=== PATIENT | female | born 1955 | race Caucasian/White ===

== ENCOUNTER 2016-11-03 14:28 | Emergency (ER) | payer MEDICARE, MEDICAID ==
[~2016-11-03] VITALS: Ht 157.5 cm; Wt 72.0 kg
[~2016-11-03 14:28] MED LIST: ASPI-558 PO; ATEN-39 PO; BACL-1 PO; TOPI25TA84 PO; [UNRECOGNIZED DRUG - CODE] PO
--- OUTSIDE RECORDS SUMMARY | 2016-11-03 14:33 | XMS REPORT ---
Author Author Shannen Rangel [facility] eClinicalWorks Address Unknown Phone Unavailable Care Team Providers Care Plumbing Contractor Name Role Phone Shannen Rangel CP Unavailable Allergies, Adverse Reactions, Alerts Substance Reaction Event Type Carbamazepine Info Not Available Drug Allergy Problems Problem Type Condition Code Onset Dates Condition Status Assessment Chest pain R07.9 Active Problem Trigeminal neuralgia 350.1 Active Problem Chronic hepatitis C without mention of hepatic coma 070.54 Active Assessment Trigeminal neuralgia G50.0 Active Assessment History of [place] (myocardial infarction) I25.2 Active Problem 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 Problem CVD (cerebrovascular disease) 437.9 Active Problem History of [place] (myocardial infarction) I25.2 Active Problem CAD (coronary artery disease) 414.00 Active Problem Poor vision 369.9 Active Problem Hypertension 401.9 Active Problem Migraine 346.90 Active Medications Medication Code System Code Instructions Start Date End Date Status Dosage Aspirin [facility] [address]-26 325 MG Orally Once a day Mar 04, 2013 take 1 tablet (81 mg) by oral route once daily Multivitamin [facility] [address] Orally once a day 1 tablet [place] [facility] [address]-76 10-325 MG Orally 5 times daily Jun 11, 2015 1 tablet as needed Procedures Procedure Coding System Code Date OFFICE VISIT EST PATIENT LEVEL 4 CPT-4 65979 May 12, 2015 [facility] VISIT ESTABLISHED PATIENT CPT-4 G0467 May 12, 2015 ELECTROCARDIOGRAM REPORT CPT-4 80194 May 12, 2015 CREATINE, MB FRACTION.[facility] CPT-4 61653 May 12, 2015 ASSAY OF TROPONIN, QUANT.[facility] CPT-4 82343 May 12, 2015 ASSAY THYROID STIM HORMONE.[facility] CPT-4 92839 May 12, 2015 ASSAY OF CK (CPK).[facility] CPT-4 66901 May 12, 2015 ELECTROCARDIOGRAM, TRACING CPT-4 90289 May 12, 2015 X-Ray Chest CPT-4 28386 May 12, 2015 Comprehen Metabolic Panel.[facility] CPT-4 64287 May 12, 2015 X-Ray Chest CPT-4 67131 May 12, 2015 ROUTINE VENIPUNCTURE CPT-4 92590 May 12, 2015 COMPLETE CBC, AUTOMATED.AMS CPT-4 32518 May 12, 2015 Vital Signs Date/Time: May 12, 2015 BMI 28.24 Index Weight 154.4 lbs Height 62 in Blood Pressure Diastolic 74 mm Hg Blood Pressure Systolic 128 mm Hg Cardiac Monitoring Heart Rate 60 /min Temperature 97.7 F Respiratory Rate 18 /min Results No Known Results Summary Purpose eClinicalWorks Submission
--- OUTSIDE RECORDS SUMMARY | 2016-11-03 14:33 | XMS REPORT ---
Author Author Shannen Rangel Organization eClinicalWorks Address Unknown Phone Unavailable Care Team Providers Care Distribution Coordinator Name Role Phone Shannen Rangel CP Unavailable Allergies, Adverse Reactions, Alerts Substance Reaction Event Type Carbamazepine 200 Mg Tablet hallucinations Non Drug Allergy Problems Problem Type Condition ICD-9 Code Onset Dates Condition Status Assessment Trigeminal neuralgia 350.1 Active Problem Chronic hepatitis C without mention of hepatic coma 070.54 Active Assessment Foot pain, left 729.5 Active Problem CVD (cerebrovascular disease) 437.9 Active Problem Hypertension 401.9 Active Problem 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 Problem Poor vision 369.9 Active Problem Trigeminal neuralgia 350.1 Active Problem Migraine 346.90 Active Problem CAD (coronary artery disease) 414.00 Active Medications Medication Code System Code Instructions Start Date End Date Status Dosage Amitriptyline HCl [facility] [address]-77 25 MG Orally Once a day 1 tablet Aspirin [facility] [address]-83 325 MG Orally Once a day Mar 04, 2013 take 1 tablet (81 mg) by oral route once daily Hydrocodone-Acetaminophen [facility] [address]-91 10-325 MG Orally every 4 -6 hours October 10, 2014 1 tablet Multivitamin [facility] [address] Orally once a day 1 tablet Procedures Procedure Coding System Code Date OFFICE VISIT EST PATIENT LEVEL 3 CPT-4 02340 September 10, 2014 Vital Signs Date/Time: September 10, 2014 BMI 29.08 Index Weight 159 lbs Height 62 in Blood Pressure Diastolic 80 mm Hg Blood Pressure Systolic 120 mm Hg Cardiac Monitoring Heart Rate 60 /min Temperature 97.7 F Respiratory Rate 18 /min Results No Known Results Summary Purpose eClinicalWorks Submission
--- OUTSIDE RECORDS SUMMARY | 2016-11-03 14:33 | XMS REPORT ---
Author Author Shannen Rangel Organization eClinicalWorks Address Unknown Phone Unavailable Care Team Providers Care Beater Out Name Role Phone Shannen Rangel CP Unavailable Allergies No Known Allergies Problems Problem Type Condition Code Onset Dates Condition Status Problem HTN (hypertension) I10 Active Problem CAD (coronary artery disease) I25.10 Active Problem Odontogenic cyst K09.0 Active Problem Chronic hepatitis C B18.2 Active Problem Trigeminal neuralgia G50.0 Active Problem CVD (cerebrovascular disease) I67.9 Active Problem Migraine G43.909 Active Medications Medication Code System Code Instructions Start Date End Date Status Dosage [facility] [address]-19 90-400 MG Orally Once a day Mar 03, 2016May 1 tablet Results No Known Results Summary Purpose eClinicalWorks Submission
--- OUTSIDE RECORDS SUMMARY | 2016-11-03 14:33 | XMS REPORT ---
Author Shannen Martínez Organization eClinicalWorks Address Unknown Phone Unavailable Care Team Providers Care Stock Unloader Name Role Phone Shannen Rangel CP Unavailable Allergies No Known Allergies Problems Problem Type Condition Code Onset Dates Condition Status Assessment Encounter for screening mammogram for malignant neoplasm of breast Z12.31 Active Problem HTN (hypertension) I10 Active Problem CAD (coronary artery disease) I25.10 Active Problem Odontogenic cyst K09.0 Active Problem Chronic hepatitis C B18.2 Active Problem Trigeminal neuralgia G50.0 Active Problem CVD (cerebrovascular disease) I67.9 Active Problem Migraine G43.909 Active Medications Medication Code System Code Instructions Start Date End Date Status Dosage Aspirin [facility] [address]-13 325 MG Orally Once a day Mar 04, 2013 take 1 tablet (81 mg) by oral route once daily Harvoni [facility] [address]-82 90-400 MG Orally Once a day Mar 03, 2016May 1 tablet Multivitamin [facility] [address] Orally once a day 1 tablet Procedures Procedure Coding System Code Date Screening Mammography Digital Bilateral CPT-4 G0202 Mar 17, 2016 Comp Screen Mammogram Add CPT-4 82482 Mar 17, 2016 Results No Known Results Summary Purpose eClinicalWorks Submission
--- OUTSIDE RECORDS SUMMARY | 2016-11-03 14:33 | XMS REPORT ---
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
--- OUTSIDE RECORDS SUMMARY | 2016-11-03 14:33 | XMS REPORT ---
Author Author Shannen Rangel [facility] Address [address] [place], [place] [address] Care Team Providers Care Any Commodity Buyer Name Role Phone Shannen Rangel Unavailable [phone] PROBLEMS Type Condition ICD9-CM Code [id number] Code Onset Dates Condition Status SNOMED Code Problem Trigeminal neuralgia G50.0 Active 77150856 Problem Odontogenic cyst K09.0 Active 085206133 Problem HTN (hypertension) I10 Active 34836264 Problem Migraine G43.909 Active 39527998 Problem Chronic hepatitis C B18.2 Active 283670984 Problem CAD (coronary artery disease) I25.10 Active 55075489 Problem CVD (cerebrovascular disease) I67.9 Active 93674109 ALLERGIES Unknown Allergies SOCIAL HISTORY No smoking Hx information available PLAN OF CARE VITAL SIGNS MEDICATIONS Unknown Medications RESULTS No Results PROCEDURES No Known procedures IMMUNIZATIONS No Known Immunizations
--- OUTSIDE RECORDS SUMMARY | 2016-11-03 14:33 | XMS REPORT ---
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 [address] Orally once a day 1 tablet Aspirin [facility] [address]-62 325 MG Orally Once a day Mar 04, 2013 take 1 tablet (81 mg) by oral route once daily Mouthcard [facility] [address]-33 10-325 MG Orally 5 times per day Mar 13, 2015 1 tablet as needed Procedures Procedure Coding System Code Date OFFICE VISIT EST PATIENT LEVEL 3 CPT-4 32279 Feb 11, 2015 METHYLPREDNISOLONE 80 MG INJ CPT-4 J1040 Feb 11, 2015 [facility] VISIT ESTABLISHED PATIENT CPT-4 G0467 Feb 11, 2015 THERPROPHDIAG INJ, SCIM CPT-4 96951 Feb 11, 2015 Vital Signs Date/Time: Feb 11, 2015 BMI 28.24 Index Weight 154.4 lbs Height 62 in Blood Pressure Diastolic *84 mm Hg Blood Pressure Systolic 122 mm Hg Cardiac Monitoring Heart Rate 64 /min Temperature 97.9 F Respiratory Rate 20 /min Results No Known Results Summary Purpose eClinicalWorks Submission
--- OUTSIDE RECORDS SUMMARY | 2016-11-03 14:33 | XMS REPORT ---
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
--- OUTSIDE RECORDS SUMMARY | 2016-11-03 14:33 | XMS REPORT ---
Author Author Tara Self [facility] eClinicalWorks Address Unknown Phone Unavailable Care Team Providers Care Upset Operator Name Role Phone Tara Self Unavailable Allergies No Known Allergies Problems Problem Type Condition Code Onset Dates Condition Status Assessment Screening for substance abuse Z13.89 Active Problem Chronic hepatitis C B18.2 Active Problem Trigeminal neuralgia G50.0 Active Assessment High risk medication use Z79.899 Active Problem High risk medication use Z79.899 Active Problem Odontogenic cyst K09.0 Active Problem Screening for substance abuse Z13.89 Active Problem CVD (cerebrovascular disease) I67.9 Active Problem Migraine G43.909 Active Problem HTN (hypertension) I10 Active Problem CAD (coronary artery disease) I25.10 Active Medications Medication Code System Code Instructions Start Date End Date Status Dosage Multivitamin [facility] [address] Orally once a day 1 tablet Cyclobenzaprine HCl [facility] [address]-53 10 MG Orally once a day to relax muscles August 18, 2015 Feb 14, 2016 1 tablet Aspirin [facility] [address]-17 325 MG Orally Once a day Mar 04, 2013 take 1 tablet (81 mg) by oral route once daily Results No Known Results Summary Purpose eClinicalWorks Submission
--- OUTSIDE RECORDS SUMMARY | 2016-11-03 14:33 | XMS REPORT ---
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
--- OUTSIDE RECORDS SUMMARY | 2016-11-03 14:33 | XMS REPORT | Continuity of Care Document ---
Author Author [facility] Organization [facility] Address Unknown Phone Unavailable Allergies Active Description Code Type Severity Reaction Onset Reported/Identified Relationship to Patient Clinical Status Yes nicotine Drug Allergy Unknown N/A 07/13/2009 Yes No Known Drug Intolerances Drug Allergy Unknown N/A 05/15/2011 Yes nicotine Drug Allergy Unknown UNKNOWN 10/24/2013 Yes No Known Drug Intolerances Drug Allergy Unknown NONE 10/24/2013 Medications Problems Procedures Results Test Result Range CHEM/HEM PROFILE-BEDSIDE - 10/24/13 00:52 POTASSIUM 3.9 mmol/L 3.5-5.3 METHOD Bedside ANION GAP 15 mmol/L 10-20 METHOD Bedside GLUCOSE 90 mg/dL 70-99 BLOOD UREA NITROGEN 11 mg/dL 7-20 CREATININE 0.8 mg/dL 0.6-1.0 HEMOGLOBIN 15.0 gm/dL 12.0-16.0 HEMATOCRIT 44.0 % 37.0-47.0 SODIUM 142 mmol/L 135-148 CHLORIDE 103 mmol/L 98-110 CARBON DIOXIDE 29 mmol/L 21-32 CALCIUM IONIZED 4.7 mg/dL 4.5-5.3 TROPONIN I BEDSIDE - 10/24/13 00:53 METHOD Bedside TROPONIN I < 0.04 ng/mL < 0.11 CBC W/DIFF - 10/24/13 01:35 EOSINOPHIL # 0.2 k/cumm 0.1-0.5 EOSINOPHIL % 2 % 2-4 GRANULOCYTE # 2.4 k/cumm 2.0-9.0 GRANULOCYTE % 39 % 50-75 LYMPHOCYTE # 2.9 k/cumm 1.0-4.0 LYMPHOCYTE % 47 % 20-30 MEAN CELL HGB 30.8 pg 27.0-33.0 MEAN CELL HGB CONCENTRATION 33.6 g/dL 32.0-37.0 MEAN CELL VOLUME 91.4 fl 80.0-100.0 MONOCYTE # 0.7 k/cumm 0.1-1.0 MONOCYTE % 12 % 4-6 RED BLOOD CELL 4.65 m/cumm 4.00-6.00 RED CELL DISTRIBUTION WIDTH 13.3 % 11.0- 15.6 WHITE BLOOD CELL 6.2 k/cumm 5.0-10.0 HEMOGLOBIN 14.3 gm/dL 12.0-16.0 HEMATOCRIT 42.5 % 37.0-47.0 PLATELET COUNT 252 k/cumm 150-400 HEPATIC FUNCTION PANEL - 10/24/13 01:35 BILI UNCONJUGATED 0.6 mg/dL 0.0-0.7 AST/SGOT 28 Units/L 10-37 ALT/SGPT 40 Units/L < 66 TOTAL PROTEIN 7.7 gm/dL 6.4-8.2 ALBUMIN 3.9 gm/dL 3.4-5.0 BILI TOTAL 0.7 mg/dL 0.0-1.0 ALKALINE PHOSPHATASE TOTAL 82 IU/L 45- 117 BILI CONJUGATED 0.1 mg/dL 0.0-0.3 LIPASE - 10/24/13 01:35 LIPASE 184 Units/L 73-393 URINALYSIS, ROUTINE - 10/24/13 01:50 UA LEUKOCYTE ESTERASE DIPSTICK 1+ NEGATIVE UA NITRITE DIPSTICK NEGATIVE NEGATIVE UA PROTEIN DIPSTICK NEGATIVE NEGATIVE UA GLUCOSE DIPSTICK NEGATIVE NEGATIVE UA KETONE DIPSTICK NEGATIVE NEGATIVE UA UROBILINOGEN DIPSTICK NORMAL NORMAL UA BILIRUBIN DIPSTICK NEGATIVE NEGATIVE UA BLOOD DIPSTICK NEGATIVE NEGATIVE UA COMMENT UA SPECIFIC GRAVITY 1.015 1.015-1.025 UR PH 7.0 5.0-7.0 UR TEST - 10/24/13 01:50 UR TEST NEGATIVE NEGATIVE UA MICROSCOPIC - 10/24/13 01:50 UA BACTERIA 2+ NEGATIVE UA EPITHELIAL CELLS 2+ epi/hpf 0 - 1+ UA RBC 0-3 rbc/hpf 0 - 3 UA VOLUME FOR EXAM 12.0 mL (12mL STD) UA WBC 2-5 wbc/hpf 0 - 5 TROPONIN I BEDSIDE - 10/24/13 04:33 METHOD Bedside TROPONIN I < 0.04 ng/mL < 0.11 Encounters ACCT No. Visit Date/Time Discharge Status Pt. Type Provider Facility Loc./Unit Complaint [id number] 10/24/2013 00:36:00 2013 06:00:00 DIS Emergency Lucio FRANCO, [facility] W.EDS
--- OUTSIDE RECORDS SUMMARY | 2016-11-03 14:33 | XMS REPORT ---
Author Author Shannen Rangel [facility] Address [address] [place], [place] [address] Care Team Providers Care Manager Life Sciences Name Role Phone Shannen Rangel Unavailable [phone] PROBLEMS Type Condition ICD9-CM Code [id number] Code Onset Dates Condition Status SNOMED Code Problem Trigeminal neuralgia G50.0 Active 19535605 Problem Odontogenic cyst K09.0 Active 220683496 Problem HTN (hypertension) I10 Active 56572489 Problem Migraine G43.909 Active 19934328 Problem Chronic hepatitis C B18.2 Active 680722917 Problem CAD (coronary artery disease) I25.10 Active 92962989 Problem CVD (cerebrovascular disease) I67.9 Active 49281697 ALLERGIES Unknown Allergies SOCIAL HISTORY No smoking Hx information available PLAN OF CARE VITAL SIGNS MEDICATIONS Unknown Medications RESULTS No Results PROCEDURES No Known procedures IMMUNIZATIONS No Known Immunizations
--- OUTSIDE RECORDS SUMMARY | 2016-11-03 14:34 | XMS REPORT ---
Author Author Shannen Rangel [facility] Address [address] [place], [place] [address] Care Team Providers Care Life Guard Name Role Phone Shannen Rangel Unavailable [phone] PROBLEMS Type Condition ICD9-CM Code [id number] Code Onset Dates Condition Status SNOMED Code Problem Trigeminal neuralgia G50.0 Active 57194213 Problem Odontogenic cyst K09.0 Active 911296804 Problem HTN (hypertension) I10 Active 71466122 Problem Migraine G43.909 Active 81389312 Problem Chronic hepatitis C B18.2 Active 516414768 Problem CAD (coronary artery disease) I25.10 Active 47135462 Problem CVD (cerebrovascular disease) I67.9 Active 59463763 ALLERGIES Unknown Allergies SOCIAL HISTORY No smoking Hx information available PLAN OF CARE VITAL SIGNS MEDICATIONS Unknown Medications RESULTS No Results PROCEDURES No Known procedures IMMUNIZATIONS No Known Immunizations
--- OUTSIDE RECORDS SUMMARY | 2016-11-03 14:34 | XMS REPORT ---
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
--- OUTSIDE RECORDS SUMMARY | 2016-11-03 14:34 | XMS REPORT ---
Author Author Shannen Rangel Organization eClinicalWorks Address Unknown Phone Unavailable Care Team Providers Care Podiatrist Name Role Phone Shannen Rangel CP Unavailable [...] Instructions Start Date End Date Status Dosage Cyclobenzaprine HCl [facility] [address]-76 10 MG Orally twice a day as needed for muscle spasm Jun 24, 2014 Jul 27, 2014 Active 1 tablet Results No Known Results Summary Purpose eClinicalWorks Submission
--- OUTSIDE RECORDS SUMMARY | 2016-11-03 14:34 | XMS REPORT ---
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
--- OUTSIDE RECORDS SUMMARY | 2016-11-03 14:34 | XMS REPORT ---
Author Author Shannen Rangel Organization eClinicalWorks Address Unknown Phone Unavailable Care Team Providers Care Guide Setter Name Role Phone Shannen Rangel CP Unavailable Allergies No Known Allergies Problems Problem Type Condition ICD-9 Code Onset Dates Condition Status Problem Trigeminal neuralgia 350.1 Active Problem CAD (coronary artery disease) 414.9 Active Problem Poor vision 369.9 Active Problem Chronic hepatitis C without mention [...]
--- OUTSIDE RECORDS SUMMARY | 2016-11-03 14:34 | XMS REPORT ---
Author Shannen Martínez [facility] eClinicalWorks Address Unknown Phone Unavailable Care Team Providers Care Bit And Shank Department Supervisor Name Role Phone Shannen Rangel CP Unavailable Allergies No Known Allergies Problems Problem Type Condition Code Onset Dates Condition Status Problem HTN (hypertension) I10 Active Problem CAD (coronary artery disease) I25.10 Active Problem Odontogenic cyst K09.0 Active Problem Chronic hepatitis C B18.2 Active Problem Trigeminal neuralgia G50.0 Active Problem CVD (cerebrovascular disease) I67.9 Active Problem Migraine G43.909 Active Medications No Known Medications Results No Known Results Summary Purpose eClinicalWorks Submission
--- OUTSIDE RECORDS SUMMARY | 2016-11-03 14:34 | XMS REPORT ---
Author Author Shannen Rangel Organization [employer] Address Unknown Phone Unavailable Care Team Providers Care Fbi Profiler Name Role Phone Shannen Rangel CP Unavailable Allergies, Adverse Reactions, Alerts Substance Reaction Event Type Carbamazepine Info Not Available Drug Allergy Problems Problem Type Condition Code Onset Dates Condition Status Assessment Chronic hepatitis C B18.2 Active Problem HTN (hypertension) I10 Active Problem CAD (coronary artery disease) I25.10 Active Problem Odontogenic cyst K09.0 Active Problem Chronic hepatitis C B18.2 Active Problem Trigeminal neuralgia G50.0 Active Problem CVD (cerebrovascular disease) I67.9 Active Problem Migraine G43.909 Active Medications Medication Code System Code Instructions Start Date End Date Status Dosage Aspirin [facility] [address]-55 325 MG Orally Once a day Mar 04, 2013 take 1 tablet (81 mg) by oral route once daily Harvoni [facility] [address]-51 90-400 MG Orally Once a day Mar 03, 2016May 1 tablet Percocet [facility] [address]-48 10-325 MG Orally five times a day August 18, 2015 September 17, 2015 1 tablet as needed Multivitamin [facility] [address]14-[address]40 Orally once a day 1 tablet Procedures Procedure Coding System Code Date Comprehen Metabolic Panel.[facility] CPT-4 36667 May 03, 2016 HEPATITIS C REVRS TRNSCRPJ.[facility] CPT-4 66299 May 03, 2016 COMPLETE CBC, AUTOMATED.[facility] CPT-4 75465 May 03, 2016 FQ VISIT ESTABLISHED PATIENT CPT-4 G0467 May 03, 2016 ROUTINE VENIPUNCTURE CPT-4 78883 May 03, 2016 OFFICE VISIT EST PATIENT LEVEL 3 CPT-4 46504 May 03, 2016 Vital Signs Date/Time: May 03, 2016 BMI 28.90 Index Weight 158.0 lbs Height 62 in Blood Pressure Diastolic 86 mm Hg Blood Pressure Systolic 130 mm Hg Cardiac Monitoring Heart Rate 80 /min Temperature 98.6 F Respiratory Rate 20 /min Results Name Result Date Reference Range Unit Abnormality Flag Venipuncture Summary Purpose eClinicalWorks Submission
--- OUTSIDE RECORDS SUMMARY | 2016-11-03 14:34 | XMS REPORT ---
Author Author Bubba Christy Organization Unknown Address [address], [place] [id number] Phone Care Team Providers Care Dev Technical Mgr Name Role Phone Juan Carlos FRANCO PP Unavailable Unavailable Reason for Referral No Reason for Referral was given. Chief Complaint HCPA Text Box CC: Trigeminal Neuralgia. History of Present Illness HCPA Text Box HPI: This is a 57-year-old female seen in consultation for left face pain she has had since last April. Apparently she had dental work done as head pain involving the left face since that time. Sometimes there is a sharp shooting pain along the left side of her nose. She tells me she has had a history of stroke affecting the right extremities but has had no symptoms of stroke for several years now. She had a syncopal episode 2 weeks ago and had problems with controlling her extremities for several minutes after the spell. She has no problems with vision hearing or swallowing except that she has high pitched ringing of the left ear. Problems * Trigeminal Nerve Injury Last Assessed: 11/01/2012 9:55:32 AM (350.9); ( Active) * Tingling (Paresthesia) Last Assessed: 11/01/2012 9:55:35 AM (782.0); ( Active) * DAMASCENER Vascular Disorders Last Assessed: 11/01/2012 9:55:37 AM (437.9); ( Active) * Normal Routine History And Physical Adult (V70.0); (Active) Medication * Aspirin 81 MG Oral Tablet; TAKE 1 TABLET DAILY.; Start Date: 11/01/2012 ( Active) Allergies and Adverse Reactions * Gabapentin CAPS (Active) * Mold (Active) Past Medical History * History of Heart Disease (429.9); (Resolved) * History of Epilepsy And Recurrent Seizures (345.90); (Resolved) * History of Stroke Syndrome (436); (Resolved) * History of Migraine Headache (346.90); (Resolved) * History of Dizziness (780.4); (Resolved) * History of Ringing In The Ears (Tinnitus) (388.30); (Resolved) * History of Vision Problems (V41.0); (Resolved) * History of Numbness (Hypesthesia) (782.0); (Resolved) * History of Facial Pain (784.0); (Resolved) * History of Head Injury (959.01); (Resolved) * History of Back Pain (724.5); (Resolved) * History of Asthma (493.90); (Resolved) Procedures Procedure Procedure Date Date Completed Status Dental Surgery - - Active Gallbladder Surgery - - Active Rotator Cuff Repair - - Active Tubal Ligation - - Active Family History * Paternal history of Parkinson Disease (Active) * Paternal history of Alzheimer Disease (Active) * Maternal history of Diabetes Mellitus (V18.0); (Active) * Maternal history of Congestive Heart Failure (Active) Social History * Marital History - Single (Active) * Physical Disability Affecting Ability To Work (Active) * Tobacco Use (305.1); (Active) * No History of Alcohol (Active) * Caffeine Use (Active) Vital Signs Date Description Test Result 01 Nov 2012 09:29 AM recorded by: Riya Jacobsen Weight 154.5 lb Body Mass Index Calculated 24.54 Body Surface Area Calculated 1.8 BP Systolic 122 mm[Hg] BP Diastolic 82 mm[Hg] Heart Rate 78 /min Resipration Rate 16 /min Advance Directives * No Advance Directives available. Encounters * Appointment 11/01/2012 * SHAWN , Provider: Westley Mac, Status: Emmanuel , Time: 3:45 PM 2012 * KENNY , Provider: Omar Peña, Status: Cody , Time: 10:00 AM
--- OUTSIDE RECORDS SUMMARY | 2016-11-03 14:34 | XMS REPORT ---
Author Author Shannen Rangel Organization [employer] Address Unknown Phone Unavailable Care Team Providers Care Wind Tunnel Technician Name Role Phone Shannen Rangel CP Unavailable [...]
--- OUTSIDE RECORDS SUMMARY | 2016-11-03 14:34 | XMS REPORT ---
Author Shannen Martínez [facility] [employer] Address Unknown Phone Unavailable Care Team Providers Care Logistics Administrator Name Role Phone Shannen Rangel CP Unavailable Allergies, Adverse Reactions, Alerts Substance Reaction Event Type Carbamazepine Info Not Available Drug Allergy Problems Problem Type Condition Code Onset Dates Condition Status Assessment CAD (coronary artery disease) I25.10 Active Assessment Trigeminal neuralgia G50.0 Active Assessment Chronic hepatitis C B18.2 Active Assessment Colon cancer screening Z12.11 Active Assessment Encounter for screening mammogram for malignant [...] Date End Date Status Dosage Cyclobenzaprine HCl [facility] [address]-47 10 MG Orally once a day to relax muscles August 18, 2015 Feb 14, 2016 1 tablet Aspirin [facility] [address]-65 325 MG Orally Once a day Mar 04, 2013 take 1 tablet (81 mg) by oral route once daily Multivitamin [facility] 0[address] Orally once a day 1 tablet Percocet [facility] [address]-05 10-325 MG Orally five times a day August 18, 2015 September 17, 2015 1 tablet as needed Procedures Procedure Coding System Code Date OFFICE VISIT EST PATIENT LEVEL 4 CPT-4 47309 Feb 09, 2016 BILIRUBIN, TOTAL.[facility] CPT-4 79818 Feb 09, 2016 FQ VISIT ESTABLISHED PATIENT CPT-4 G0467 Feb 09, 2016 ROUTINE VENIPUNCTURE CPT-4 26415 Feb 09, 2016 ASSAY OF GGT.[facility] CPT-4 23599 Feb 09, 2016 Lipid Panel - [facility] CPT-4 14012 Feb 09, 2016 ASSAY OF APOLIPOPROTEIN.[facility] CPT-4 10342 Feb 09, 2016 ASSAY OF HAPTOGLOBIN, QUANT.[facility] CPT-4 82513 Feb 09, 2016 ASSAY, NEPHELOMETRY NOT SPEC.AMS CPT-4 46888 Feb 09, 2016 ALANINE AMINO (ALT) (SGPT).[facility] CPT-4 47065 Feb 09, 2016 Vital Signs Date/Time: Feb 09, 2016 BMI 28.64 Index Weight 156.6 lbs Height 62 in Blood Pressure Diastolic 70 mm Hg Blood Pressure Systolic 126 mm Hg Cardiac Monitoring Heart Rate 72 /min Temperature 97.8 F Respiratory Rate 18 /min Results Name Result Date Reference Range Unit Abnormality Flag Lipid Panel ----Cardiac Risk 5.4 [id number] 0.0-5.0 H ----VLDL Cholesterol 47 [id number] 0-28 mg/dL H ----Cholesterol 215 35938634 0-199 mg/dL H ----Triglycerides 237 09190549 0-149 mg/dL H ----HDL Cholesterol 40 66255671 40-84 mg/dL ----LDL Cholesterol 128 [id number] 0-130 mg/dL Non-HDL Cholesterol ----Non-HDL Cholesterol 175 [id number] 0-159 mg/dL H Summary Purpose eClinicalWorks Submission
--- OUTSIDE RECORDS SUMMARY | 2016-11-03 14:34 | XMS REPORT ---
Author Author Shannen Rangel Organization [employer] Address Unknown Phone Unavailable Care Team Providers Care Summer Nanny Name Role Phone Shannen Rangel CP Unavailable [...]
--- OUTSIDE RECORDS SUMMARY | 2016-11-03 14:34 | XMS REPORT ---
Author Author Shannen Rangel Organization [employer] Address Unknown Phone Unavailable Care Team Providers Care Gear Setter Name Role Phone Shannen Rangel CP [...] Start Date End Date Status Dosage Hydrocodone-Acetaminophen [facility] [address]-60 10-325 MG Orally every 4 - 6 hours, allowed 5/day Jul 24, 2014 1 tablet Results No Known Results Summary Purpose eClinicalWorks Submission
--- OUTSIDE RECORDS SUMMARY | 2016-11-03 14:34 | XMS REPORT ---
Author Author GENERATED, SYSTEM Organization Unknown Address Unknown Phone Unavailable Care Team Providers Care Scale Reclamation Tender Name Role Phone MD AGATHA, AUSTYN PP [phone] Reason For Visit Reason for Visit from 05/13/2015 12:48 PM:* Pt Stated Reason for Adm : CP starting 2 weeks ago Chief Complaint C/P Social History Social History from 05/13/2015 7:32 PM:* Tobacco Use? : Current Everyday Smoker Social History from 05/13/2015 12:48 PM:* Tobacco Use? : Current Everyday Smoker Functional Status Functional Status from 05/13/2015 12:48 PM:* LOC : Alert * Oriented To : Person,Place,Time,Event * Weight Bearing Status : Full * Assist Level : Independent * # Assists : Independent Vital Signs Hospital Vital Signs from 05/13/2015 7:30 PM:* Height : 5/2 ft,in * Pulse : 63 * BP : 133/74 Hospital Vital Signs from 05/13/2015 6:30 PM:* Height : 5/2 ft,in * Pulse : 61 * BP : 137/68 Hospital Vital Signs from 05/13/2015 5:30 PM:* Height : 5/2 ft,in * Pulse : 63 * BP : 126/60 Hospital Vital Signs from 05/13/2015 5:00 PM:* Height : 5/2 ft,in * Pulse : 58 * BP : 121/64 Hospital Vital Signs from 05/13/2015 4:30 PM:* Height : 5/2 ft,in * Pulse : 61 * BP : 127/65 Hospital Vital Signs from 05/13/2015 4:15 PM:* Height : 5/2 ft,in * Pulse : 63 * BP : 124/60 Hospital Vital Signs from 05/13/2015 4:00 PM:* Height : 5/2 ft,in * Pulse : 65 * BP : 125/62 Hospital Vital Signs from 05/13/2015 3:45 PM:* Height : 5/2 ft,in * Pulse : 68 * Respirations : 20 * BP : 130/63 Hospital Vital Signs from 05/13/2015 3:30 PM:* Height : 5/2 ft,in * Pulse : 63 * Respirations : 20 * BP : 123/63 Hospital Vital Signs from 05/13/2015 12:48 PM:* Weight : 70.5/ kg * Height : 5/2 ft,in Hospital Vital Signs from 05/13/2015 12:33 PM:* Weight : 70.5/ kg * Height : 5/2 ft,in * Temperature : 96.8 F * Pulse : 62 * Respirations : 16 * BP : 165/90 Results Chemistry from 05/13/2015 5:38 PMTROPONIN-I <0.04 (SEE BELOW ) Chemistry from 05/13/2015 1:38 PMSODIUM 135 MMOL/L L (136-145 MMOL/L) POTASSIUM 4.0 MMOL/L (3.5-5.1 MMOL/L) CHLORIDE 101 MMOL/L (98-107 MMOL/L) TCO2 30.2 MMOL/L (21.0-32.0 MMOL/L) *ANION GAP 3.8 MMOL/L L (8.0-16.0 MMOL/L) BUN 16 MG/DL (7-18 MG/DL) CREATININE 0.75 MG/DL (0.55-1.02 MG/DL) *BUN/CREATININE RATIO 21.3 H (9.1-17.0 ) GLUCOSE 93 MG/DL (65-99 MG/DL) *GFR EST NON AFR DUTCH 86 ML/MIN *GFRA EST AFR AMER >90 ML/MIN CALCIUM 8.9 MG/DL (8.5-10.1 MG/DL) TROPONIN-I 0.04 (SEE BELOW ) CHOLESTEROL 188 MG/DL (50-199 MG/DL) TRIGLYCERIDES 75 MG/DL (0-149 MG/DL) HDL CHOLESTEROL 52 MG/DL (40-60 MG/DL) *LDL (CALCULATED) CHOL 121 MG/DL H (0-99 MG/DL) Hematology from 05/13/2015 1:38 PMWBC 6.1 X10e3/UL (3.6-11.2 X10e3/UL) RBC 4.50 X10e6/UL (3.63-4.92 X10e6/UL) HEMOGLOBIN 13.7 G/DL (11.0-14.3 G/DL) HEMATOCRIT 41.3 % (31.2-41.9 %) *MCV 91.8 FL (79.0-98.0 FL) *MCH 30.5 PG (27.0-33.0 PG) *MCHC 33.2 G/DL (32.0-36.0 G/DL) *RDW 12.9 % (12.3-17.0 %) *RDWSD 41.1 (37.1-47.8 ) PLATELET 250 X10e3/UL (159-386 X10e3/UL) *MPV 8.0 FL (7.4-10.4 FL) AUTOMATED DIFF PERFORMED SEGS 57.4 % *LYMPHOCYTES 34.6 % *MONOCYTES 6.6 % *EOSINOPHILS 1.0 % *BASOPHILS 0.4 % *ABSOLUTE NEUTROPHILS 3.50 X10e3/UL (1.80-7.80 X10e3/UL) *ABSOLUTE LYMPHOCYTES 2.10 X10e3/UL (1.00-3.00 X10e3/UL) *ABSOLUTE MONOCYTES 0.40 X10e3/UL (0.30-1.00 X10e3/UL) *ABSOLUTE EOSINOPHILS 0.10 X10e3/UL (0.00-0.50 X10e3/UL) *ABSOLUTE BASOPHILS 0.00 X10e3/UL (0.00-0.20 X10e3/UL) DX Radiology from 05/13/2015 1:26 PMCHEST 1 VIEW History: Chest Pain Priors: None. Findings: The heart size and pulmonary vasculature within normal limits. No consolidating infiltrates are identified. No significant pleural effusion or pneumothorax is seen. Impression: No acute abnormality. Electronically signed by: Teresita Sousa MD Dictated: 05/13/2015 15:26 Problems Encounter Diagnosis * Catheterization of Left Heart Status:Active. * Chest Pain Status:Active. Encounters Encounter Diagnosis * Catheterization of Left Heart Status:Active. * Chest Pain Status:Active. Plan of Care Follow-up Appointments from 05/13/2015 7:32 PM:* #1 Office appointment: : Contact [place] [facility] or PCP for follow up on Monday05/15/15 Treatment Plan from 05/13/2015 3:36 PM:* Care Management Note : Patient was admitted as observation d/t chest pain. Troponin's have been negative as well as CXR. Cardio was consulted, tele was placed, and IV fluids running. Patient would benefit from a HC and a LHC was completed. Anticipate a discharge later today, and patient is appropriate for observation status. Procedures No relevant procedures performed. Immunizations No immunizations administered or ordered. Hospital Course Hospital Discharge Instructions How to care for yourself at home from 05/13/2015 7:32 PM:* Discharge Activity : Activity as tolerated * Discharge Diet : As before hospitalization * Remove dressing in: : AM * Call your doctor if: : Fever over 101 F or severe chills,Chest pain or other unexplained symptoms,Tingling or numbness develops,A sudden increase or decrease in weight,You have persistent or worsening symptoms,If you have Heart Failure and you gain 3 pounds within 1 week or your symptoms worsen. (Weigh at home tomorrow morning) * Specific Discharge Teaching Instructions provided: : Yes * Specific Discharge Teaching Instructions Reviewed: : Cardiology Post Catherization Instructions,Stop Smoking * Discharge on Warfarin : No Allergies, Adverse Reactions, Alerts * No Latex Allergy. * No IV Contrast Allergy. * No Known Drug Allergies. * No Known Food Allergies. Medication It is the responsibility of the patient or patient financial foundations representative to confirm the list of medications with either the patient's personal care provider or the patient's follow-up care provider to ensure the patient has an appropriate list of medications to take at home. Discharge medications Continued medications* aspirin 325 mg Tablet, Ordered By: MARY WHITTEN Directions: 1 tablet oral daily * HYDROcodone-acetaminophen 10 mg-325 mg Tablet, Ordered By: MARY WHITTEN Directions: 1 tablet oral every 4-6 hours PRN pain * multivitamin Stopped medications* None
--- OUTSIDE RECORDS SUMMARY | 2016-11-03 14:35 | XMS REPORT ---
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
--- OUTSIDE RECORDS SUMMARY | 2016-11-03 14:35 | XMS REPORT ---
Author Shannen Martínez [facility] eClinicalWorks Address Unknown Phone Unavailable Care Team Providers Care Legal Investigator Name Role Phone Shannen Rangel CP Unavailable [...]
--- OUTSIDE RECORDS SUMMARY | 2016-11-03 14:35 | XMS REPORT ---
Author Author Shannen Rangel [facility] eClinicalWorks Address Unknown Phone Unavailable Care Team Providers Care Cold Molding Press Operator Name Role Phone Shannen Rangel CP Unavailable Allergies No Known Allergies Problems Problem Type Condition Code Onset Dates Condition Status Problem Chronic [...]
--- OUTSIDE RECORDS SUMMARY | 2016-11-03 14:35 | XMS REPORT ---
Author Chad Mullins Organization eClinicalWorks Address Unknown Phone Unavailable Care Team Providers Care Timber Cutter Name Role Phone Chad Avendano CP Unavailable Allergies, Adverse Reactions, Alerts Substance Reaction Event Type Carbamazepine Info Not Available Drug Allergy Problems Problem Type Condition Code Onset Dates Condition Status Assessment Trigeminal neuralgia 350.1 Active Problem Chronic hepatitis C without mention of hepatic coma 070.54 Active Assessment Dental infection 522.4 Active Assessment Hypertension 401.9 Active Problem CVD (cerebrovascular disease) 437.9 Active Problem Hypertension 401.9 Active Problem 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 [address]-43 300 MG Orally every 8 hrs Jan 22, 2015 Feb 01, 2015 1 capsule Aspirin [facility] [address]-09 325 MG Orally Once a day Mar 04, 2013 take 1 tablet (81 mg) by oral route once daily [place] [facility] [address]-13 10-325 MG Orally every 6 hrs 1 tablet as needed Multivitamin [facility] [address] Orally once a day 1 tablet Procedures Procedure Coding System Code Date OFFICE VISIT EST PATIENT LEVEL 3 CPT-4 51275 Jan 22, 2015 [facility] VISIT ESTABLISHED PATIENT CPT-4 G0467 Jan 22, 2015 Vital Signs Date/Time: Jan 22, 2015 BMI 28.24 Index Weight 154.4 lbs Height 62 in Blood Pressure Diastolic 88 mm Hg Blood Pressure Systolic 130 mm Hg Cardiac Monitoring Heart Rate 63 /min Temperature 97.9 F Respiratory Rate 18 /min Results No Known Results Summary Purpose eClinicalWorks Submission
--- OUTSIDE RECORDS SUMMARY | 2016-11-03 14:35 | XMS REPORT | Referral Summary ---
Author Author [facility] Organization [facility] Address Unknown Phone Unavailable Care Team Providers Care Gum Remover Name Role Phone Bethany Pulido Primary Care Physician [phone] Encounter Date(s): 05/11/16 - 05/11/16 [facility] [address] [place] [address] [facility] Discharge Disposition: 01-Home or Self Care Attending Physician: Provider, Immediate Care Admitting Physician: Provider, Immediate Care Vital Signs No data available for this section Problem List No data available for this section Allergies, Adverse Reactions, Alerts No data available for this section Medications No data available for this section Results No data available for this section Immunizations No data available for this section Procedures No data available for this section Social History No data available for this section Assessment and Plan No data available for this section
--- OUTSIDE RECORDS SUMMARY | 2016-11-03 14:35 | XMS REPORT ---
Author Author Shannen Rangel [facility] Address [address] [place], [place] [address] Care Team Providers Care Housing Grant Analyst Name Role Phone Shannen Rangel Unavailable [phone] PROBLEMS Type Condition ICD9-CM Code IPW39-[place] Code Onset Dates Condition Status SNOMED Code Problem Trigeminal neuralgia G50.0 Active 99931447 Problem Odontogenic cyst K09.0 Active 424464062 Problem HTN (hypertension) I10 Active 91092964 Problem Migraine G43.909 Active 63156039 Problem Chronic hepatitis C B18.2 Active 250380250 Problem CAD (coronary artery disease) I25.10 Active 04080960 Problem CVD (cerebrovascular disease) I67.9 Active 72208734 ALLERGIES Unknown Allergies SOCIAL HISTORY No smoking Hx information available PLAN OF CARE VITAL SIGNS MEDICATIONS Unknown Medications RESULTS No Results PROCEDURES No Known procedures IMMUNIZATIONS No Known Immunizations
--- OUTSIDE RECORDS SUMMARY | 2016-11-03 14:35 | XMS REPORT ---
Author Author Shannen Rangel Organization eClinicalWorks Address Unknown Phone Unavailable Care Team Providers Care Clinical Lab Clerk Name Role Phone Shannen Rangel CP Unavailable [...] disease) 414.00 Active Medications No Known Medications Procedures Procedure Coding System Code Date Screening Mammography Digital Bilateral CPT-4 G0202 December 10, 2014 Comp Screen Mammogram Add CPT-4 67899 December 10, 2014 Results No Known Results Summary Purpose eClinicalWorks Submission
--- OUTSIDE RECORDS SUMMARY | 2016-11-03 14:35 | XMS REPORT ---
Author Author Shannen Rangel Organization eClinicalWorks Address Unknown Phone Unavailable Care Team Providers Care Plodding Operator Name Role Phone Shannen Rangel CP Unavailable Allergies, Adverse Reactions, Alerts Substance Reaction Event Type Carbamazepine 200 Mg Tablet Info Not Available Non Drug Allergy Problems Problem Type Condition ICD-9 Code Onset Dates Condition Status Assessment Stroke 434.91 Active Problem Chronic hepatitis C without mention of hepatic coma 070.54 Active Assessment Trigeminal neuralgia 350.1 Active Assessment Foot pain, left 729.5 Active Assessment Need for influenza vaccination V04.81 Active Problem CVD (cerebrovascular disease) 437.9 Active Problem Hypertension 401.9 Active Problem 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 Problem Poor vision 369.9 Active Problem Trigeminal neuralgia 350.1 Active Problem Migraine 346.90 Active Problem CAD (coronary artery disease) 414.9 Active Medications Medication Code System Code Instructions Start Date End Date Status Dosage Diclofenac Potassium ND 0 50 mg September 30, 2013 Inactive take 1 pack by Oral route 1 time per day PRN headache Hydrocodone-Acetaminophen [facility] [address]-76 10-325 MG Orally every 6 to 8 hours Active 1 tablet Flexeril [facility] [address]-70 10 mg Mar 05, 2013 Inactive take 1 tablet by Oral route 1 time per day PRN fojr muscle spasm Aspirin [facility] [address]-75 325 MG Orally Once a day Mar 04, 2013 Active take 1 tablet (81 mg) by oral route once daily Amitriptyline HCl [facility] [address]-62 25 MG Orally Once a day Active 1 tablet Procedures Procedure Coding System Code Date INFLUENZA IIV4 P-FREE AGE 3+ CPT-4 65416 Apr 07, 2014 OFFICE VISIT EST PATIENT LEVEL 3 CPT-4 95688 Apr 07, 2014 Vital Signs Date/Time: Apr 07, 2014 BMI 28.20 Index Weight 154.2 lbs Height 62 in Blood Pressure Diastolic 90 mm Hg Blood Pressure Systolic 130 mm Hg Cardiac Monitoring Heart Rate 64 /min Temperature 97.7 F Respiratory Rate 16 /min Results Name Result Date Reference Range Unit X ray : Foot, left Complete (43325) Immunizations Vaccine Administration Date *Influenza quadrivalent IIV4 (ages 3 and up) Apr 07, 2014 Summary Purpose eClinicalWorks Submission
--- OUTSIDE RECORDS SUMMARY | 2016-11-03 14:35 | XMS REPORT ---
Author Author Shannen Rangel [facility] eClinicalWorks Address Unknown Phone Unavailable Care Team Providers Care Produce Manager Name Role Phone Shannen Rangel CP Unavailable [...]
--- OUTSIDE RECORDS SUMMARY | 2016-11-03 14:35 | XMS REPORT ---
Author Author Shannen Rangel Organization eClinicalWorks Address Unknown Phone Unavailable Care Team Providers Care Director Executive Communications Name Role Phone Shannen Rangel CP Unavailable [...] Start Date End Date Status Dosage Hydrocodone-Acetaminophen [facility] [address]-18 10-325 MG Orally every 6 to 8 hours Active 1 tablet Amitriptyline HCl [facility] [address]-45 25 MG Orally Once a day Active 1 tablet Aspirin [facility] [address]-36 325 MG Orally Once a day Mar 04, 2013 Active take 1 tablet (81 mg) by oral route once daily Results No Known Results Summary Purpose eClinicalWorks Submission
--- OUTSIDE RECORDS SUMMARY | 2016-11-03 14:36 | XMS REPORT ---
Author Author Shannen Rangel [facility] Address [address] [place], [place] [address] Care Team Providers Care Director Fixed Income Name Role Phone Shannen Rangel Unavailable [phone] PROBLEMS Type Condition ICD9-CM Code [id number] Code Onset Dates Condition Status SNOMED Code Problem Trigeminal neuralgia G50.0 Active 01711911 Problem Odontogenic cyst K09.0 Active 135320247 Problem HTN (hypertension) I10 Active 60263311 Problem Migraine G43.909 Active 39353177 Problem Chronic hepatitis C B18.2 Active 106278758 Problem CAD (coronary artery disease) I25.10 Active 73175637 Problem CVD (cerebrovascular disease) I67.9 Active 43058868 ALLERGIES Unknown Allergies SOCIAL HISTORY No smoking Hx information available PLAN OF CARE VITAL SIGNS MEDICATIONS Unknown Medications RESULTS No Results PROCEDURES No Known procedures IMMUNIZATIONS No Known Immunizations
--- OUTSIDE RECORDS SUMMARY | 2016-11-03 14:36 | XMS REPORT ---
Author Author Bubba Christy Organization Unknown Address [address] [place], [place] [id number] Phone Care Team Providers Care Licensed Professional Counselor Name Role Phone Juan Carlos FRANCO PP Unavailable Unavailable Reason for Referral No Reason for Referral was given. Chief Complaint HCPA Text Box CC: Here for test results. History of Present Illness HCPA Text Box HPI: This is a 57-year-old seen in follow up. She continues to have left face pain that is aggravated by wind or touching. His numbness of the hands and feet. She wonders if her symptoms are from carbon monoxide exposure that she had previously. She has not had any new symptoms of stroke. Carpal Tunnel Syndrome (Brief): Peripheral Neuropathy (Brief): Parkinsons Disease ( Brief): Seizure: Seizure Disorder (Brief): Problems * MULE TENDER Vascular Disorders Last Assessed: 11/15/2012 4:23:19 PM (437.9); ( Active) * Tingling (Paresthesia) Last Assessed: 11/15/2012 4:28:54 PM (782.0); ( Active) * Normal Routine History And Physical Adult (V70.0); (Active) * Trigeminal Nerve Injury (350.9); (Active) * Fainting (Syncope) (780.2); (Active) Medication * Aspirin 81 MG Oral Tablet; TAKE 1 TABLET DAILY.; Start Date: 11/01/2012 ( Active) * Topamax 50 MG Oral Tablet; Start Date: 11/07/2012 (Active) * Baclofen 10 MG Oral Tablet; Take 1 at bedtime; Start Date: 11/07/2012 (Active) * [place]adero 10-325 MG Oral Tablet; Start Date: 11/07/2012 (Active) Allergies and Adverse Reactions * Gabapentin CAPS [...] (Active) Vital Signs Date Description Test Result 15 Nov 2012 03:59 PM recorded by: Daron Landry Weight 154 lb BP Systolic 122 mm[Hg] Heart Rate 64 /min BP Diastolic 80 mm[Hg] Body Surface Area Calculated 1.8 Body Mass Index Calculated 24.46 Treatment Plan * ANTINUCLEAR ANTIBODIES 3902 11/15/2012 Routine * Comprehensive Metabolic Panel 1212 11/15/2012 Routine * FOLATE 3608 11/15/2012 Routine * FREE T4 3604 11/15/2012 Routine * Immunofixation, Serum 227410 11/15/2012 Routine * Methylmalonic Acid, Serum 966617 11/15/2012 Routine * Protein Elec + Interp, Serum 552987 11/15/2012 Routine * VITAMIN B12 3606 11/15/2012 Routine * THYROID STIM. HORMONE 360111/15/2012 Routine Advance Directives * No Advance Directives available. Encounters * Appointment 11/15/2012 * NEWPT45 , Provider: Omar Peña, Status: Cody , Time: 10:00 AM * DALILAVEMG , Provider: Westley Mac, Status: Emmanuel , Time: 8:30 AM 2012
--- OUTSIDE RECORDS SUMMARY | 2016-11-03 14:36 | XMS REPORT ---
Author Author Shannen Rangel Organization e[employer] Address Unknown Phone Unavailable Care Team Providers Care Tanning Wheel Filler Name Role Phone Shannen Rangel CP Unavailable Allergies, Adverse Reactions, Alerts Substance Reaction Event Type Carbamazepine Info Not Available Drug Allergy Problems Problem Type Condition Code Onset Dates Condition Status Assessment Trigeminal neuralgia 350.1 Active Problem Chronic hepatitis C without mention of hepatic coma 070.54 Active Assessment Sciatica 724.3 Active Assessment Breast cancer screening V76.10 Active Assessment Hypertension 401.9 Active Problem CVD (cerebrovascular disease) 437.9 Active Problem Hypertension 401.9 Active Problem 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 [address]-74 10-325 MG Orally every 4-6 hrs December 11, 2014 1 tablet Multivitamin [facility] [address] Orally once a day 1 tablet Aspirin [facility] [address]-11 325 MG Orally Once a day Mar 04, 2013 take 1 tablet (81 mg) by oral route once daily Procedures Procedure Coding System Code Date OFFICE VISIT EST PATIENT LEVEL 3 CPT-4 05852 November 11, 2014 Vital Signs Date/Time: November 11, 2014 BMI 26.70 Index Weight 146 lbs Height 62 in Blood Pressure Diastolic 80 mm Hg Blood Pressure Systolic 120 mm Hg Cardiac Monitoring Heart Rate 60 /min Temperature 98.0 F Respiratory Rate 18 /min Results No Known Results Summary Purpose eClinicalWorks Submission
--- OUTSIDE RECORDS SUMMARY | 2016-11-03 14:36 | XMS REPORT ---
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
--- OUTSIDE RECORDS SUMMARY | 2016-11-03 14:36 | XMS REPORT ---
Author Author Shannen Rangel [facility] Address [address] [place], [place] [address] Care Team Providers Care Pharmacy Order Entry Technician Name Role Phone Shannen Rangel Unavailable [phone] PROBLEMS Type Condition ICD9-CM Code [id number] Code Onset Dates Condition Status SNOMED Code Problem Trigeminal neuralgia G50.0 Active 29952032 Problem Odontogenic cyst K09.0 Active 186600236 Problem HTN (hypertension) I10 Active 29647477 Problem Migraine G43.909 Active 97144565 Problem Chronic hepatitis C B18.2 Active 494723476 Problem CAD (coronary artery disease) I25.10 Active 75307631 Problem CVD (cerebrovascular disease) I67.9 Active 81043189 ALLERGIES Unknown Allergies SOCIAL HISTORY No smoking Hx information available PLAN OF CARE VITAL SIGNS MEDICATIONS Unknown Medications RESULTS No Results PROCEDURES No Known procedures IMMUNIZATIONS No Known Immunizations
--- OUTSIDE RECORDS SUMMARY | 2016-11-03 14:36 | XMS REPORT ---
Author Shannen Martínez [facility] eClinicalWorks Address Unknown Phone Unavailable Care Team Providers Care Farmworker Diversified Crops Name Role Phone Shannen Rangel CP Unavailable [...]
--- OUTSIDE RECORDS SUMMARY | 2016-11-03 14:36 | XMS REPORT ---
Author Author Shannen Rangel Organization [employer]Works Address Unknown Phone Unavailable Care Team Providers Care Holder Pile Driving Name Role Phone Shannen Rangel CP Unavailable [...] Start Date End Date Status Dosage Hydrocodone-Acetaminophen [facility] [address]-87 10-325 MG Orally every 4 - 6 hours, allowed 5/day Jul 24, 2014 1 tablet Results No Known Results Summary Purpose eClinicalWorks Submission
--- OUTSIDE RECORDS SUMMARY | 2016-11-03 14:36 | XMS REPORT ---
Author Author Rashad Wong Organization eClinicalWorks Address Unknown Phone Unavailable Care Team Providers Care Warehouse Processor Name Role Phone Rashad Wong CP Unavailable Allergies, Adverse Reactions, Alerts Substance Reaction Event Type Carbamazepine 200 Mg Tablet hallucinations Non Drug Allergy Problems Problem Type Condition ICD-9 Code Onset Dates Condition Status Assessment Onychogryposis of toenail 703.8 Active Problem Chronic hepatitis C without mention of hepatic coma 070.54 Active Assessment Ingrowing nail 703.0 Active Problem CVD (cerebrovascular disease) 437.9 Active Problem Hypertension 401.9 Active Problem 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 Problem Poor vision 369.9 Active Problem Trigeminal neuralgia 350.1 Active Problem Migraine 346.90 Active Problem CAD (coronary artery disease) 414.00 Active Medications Medication Code System Code Instructions Start Date End Date Status Dosage Amitriptyline HCl [facility] [address]-23 25 MG Orally Once a day Active 1 tablet Aspirin [facility] [address]-09 325 MG Orally Once a day Mar 04, 2013 Active take 1 tablet (81 mg) by oral route once daily Multivitamin [facility] [address] Orally once a day Active 1 tablet Cyclobenzaprine HCl [facility] [address]-62 10 MG Orally twice a day as needed for muscle spasm Jun 24, 2014 Jul 24, 2014 Active 1 tablet Hydrocodone-Acetaminophen [facility] [address]-57 10-325 MG Orally every 4 - 6 hours, allowed 5/day Jul 24, 2014 Active 1 tablet Procedures Procedure Coding System Code Date REMOVAL OF NAIL PLATE CPT-4 90721 Jun 27, 2014 Vital Signs Date/Time: Jun 27, 2014 BMI 28.35 Index Weight 155.0 lbs Height 62 in Blood Pressure Diastolic 94 mm Hg Blood Pressure Systolic 126 mm Hg Cardiac Monitoring Heart Rate 60 /min Temperature 97.6 F Respiratory Rate 18 /min Results No Known Results Summary Purpose eClinicalWorks Submission
--- OUTSIDE RECORDS SUMMARY | 2016-11-03 14:36 | XMS REPORT ---
Author Author Shannen Rangel [facility] eClinicalWorks Address Unknown Phone Unavailable Care Team Providers Care Health Care Marketing Manager Name Role Phone Shannen Rangel CP [...]
--- OUTSIDE RECORDS SUMMARY | 2016-11-03 14:36 | XMS REPORT ---
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
--- OUTSIDE RECORDS SUMMARY | 2016-11-03 14:36 | XMS REPORT ---
Author Author Shannen Rangel [facility] eClinicalWorks Address Unknown Phone Unavailable Care Team Providers Care Platform Attendant Name Role Phone Shannen Rangel CP [...]
--- OUTSIDE RECORDS SUMMARY | 2016-11-03 14:36 | XMS REPORT ---
Author Author [employer], SYSTEM Organization Unknown Address Unknown Phone Unavailable Care Team Providers Care Carpenters Name Role Phone MD AGATHA, AUSTYN PP [phone] Reason For Visit Chief Complaint CHEST PAIN, INTERMITTENT, BAD LABS Social History Functional Status Vital Signs Results Problems Encounter Diagnosis No relevant problems exist. Additional Problems * Catheterization of Left Heart Status:Active. * Chest Pain Status:Active. Encounters Encounter Diagnosis No relevant problems exist. Plan of Care Procedures No relevant procedures performed. Immunizations No immunizations administered or ordered. Hospital Course Hospital Discharge Instructions Allergies, Adverse Reactions, Alerts * Latex Allergy has not been assessed. * IV Contrast Allergy has not been assessed. * No Known Drug Allergies. * No Known Food Allergies. Medication Medication reconciliation has not been performed.
--- OUTSIDE RECORDS SUMMARY | 2016-11-03 14:36 | XMS REPORT ---
Author Author Shannen Rangel Organization eClinicalWorks Address Unknown Phone Unavailable Care Team Providers Care Tilesetter Name Role Phone Shannen Rangel CP Unavailable [...] Start Date End Date Status Dosage Ramon [facility] [address]-43 90-400 MG Orally Once a day Mar 03, 2016May 1 tablet Results No Known Results Summary Purpose eClinicalWorks Submission
--- OUTSIDE RECORDS SUMMARY | 2016-11-03 14:36 | XMS REPORT ---
Author Author Shannen Rangel Organization eClinicalWorks Address Unknown Phone Unavailable Care Team Providers Care Home Office Representative Name Role Phone Shannen Rangel CP Unavailable [...] Instructions Start Date End Date Status Dosage Medrol (William) [facility] [address]-10 4 MG Orally once a day Jun 30, 2014Jun Active as directed Results No Known Results Summary Purpose eClinicalWorks Submission
--- OUTSIDE RECORDS SUMMARY | 2016-11-03 14:36 | XMS REPORT ---
Author Shannen Martínez [facility] eClinicalWorks Address Unknown Phone Unavailable Care Team Providers Care Shake Out Worker Name Role Phone Shannen Rangel CP Unavailable [...]
--- OUTSIDE RECORDS SUMMARY | 2016-11-03 14:36 | XMS REPORT ---
Author Author Shannen Rangel Organization eClinicalWorks Address Unknown Phone Unavailable Care Team Providers Care Shipping Inspector Name Role Phone Shannen Rangel CP Unavailable [...]
--- OUTSIDE RECORDS SUMMARY | 2016-11-03 14:36 | XMS REPORT ---
Author Author Shannen Rangel Organization [employer] Address Unknown Phone Unavailable Care Team Providers Care Extractor Operator Solvent Process Name Role Phone Shannen Rangel CP Unavailable [...]
--- OUTSIDE RECORDS SUMMARY | 2016-11-03 14:36 | XMS REPORT ---
Author Author GENERATED, SYSTEM Organization Unknown Address Unknown Phone Unavailable Care Team Providers Care Metal Polisher Name Role Phone MD AGATHA, AUSTYN PP [phone] Reason For Visit Chief Complaint DENTAL PAIN Social History Functional Status Vital Signs Results Problems Encounter Diagnosis No relevant problems exist. Additional Problems * Catheterization of Left Heart Comment:Problem resolved by [facility] Workflow upon Discharge, Status:Resolved. * Chest Pain Comment:Problem resolved by [facility] Workflow upon Discharge, Status :Resolved. Encounters Encounter Diagnosis No relevant problems exist. [...]
--- OUTSIDE RECORDS SUMMARY | 2016-11-03 14:43 | XMS REPORT | Continuity of Care Document ---
Author Author [facility] Organization [facility] Address Unknown Phone Unavailable Allergies Active Description [...] Status Pt. Type Provider Facility Loc./Unit Complaint [id number] 10/24/2013 00:36:00 2013 06:00:00 DIS Emergency Lucio FRANCO, [facility] W.EDS
--- OUTSIDE RECORDS SUMMARY | 2016-11-03 14:44 | XMS REPORT ---
Author Author GENERATED, SYSTEM Organization Unknown Address Unknown Phone Unavailable Care Team Providers Care Top Frame Maker Name Role Phone MD AGATHA, AUSTYN PP [phone] Reason For Visit Reason for Visit from [...] MG/DL (65-99 MG/DL) *GFR EST NON AFR SUDANESE 86 ML/MIN *GFRA EST AFR AMER >90 [...] 7:32 PM:* #1 Office appointment: : Contact [place] [facility] or PCP for follow up on [...] the responsibility of the patient or patient technology sales representative to confirm the list of medications [...]
[2016-11-03 14:45] VITALS: Ht 157.5 cm; Wt 72.0 kg
--- OUTSIDE RECORDS SUMMARY | 2016-11-03 14:46 | XMS REPORT ---
Author Author [employer] Organization Unknown Address Unknown Phone Unavailable Care Team Providers Care Data Conversion Operator Name Role Phone MD AGATHA, AUSTYN PP [phone] Reason For Visit Chief Complaint DENTAL PAIN [...]
--- OUTSIDE RECORDS SUMMARY | 2016-11-03 14:46 | XMS REPORT ---
Author Author [employer] Organization Unknown Address Unknown Phone Unavailable Care Team Providers Care Chemical Etching Processor Name Role Phone MD AGATHA, AUSTYN PP [phone] Reason For Visit Chief Complaint CHEST PAIN, [...]
[2016-11-03] MEDS ORDERED: IBUP-1724 PO (14:53)
[2016-11-03] MEDS ORDERED: OXYC-533 PO (14:53)
--- NOTE | 2016-11-03 14:53 | ERPDOC ---
Departure Disposition Decision Date: November 03, 2016 Disposition Decision Time: 15:18 Disposition: 01 DISCHARGED HOME, SELF-CARE Impression Impression Impression: Primary Impression: Left ankle sprain Encounter type: initial encounter Involved ligament of ankle: unspecified ligament Qualified Codes: S93.402A - Sprain of unspecified ligament of left ankle, initial encounter Additional Impression: Contusion, foot Encounter type: initial encounter Laterality: left Qualified Codes: S90.32XA - Contusion of left foot, initial encounter Severity: Moderate Condition: Stable Seen By: Mid-level only Referrals: AUSTYN SNIDER MD (Family) Patient Instructions: Ankle Sprain (ED), Contusion in Adults (ED) Problems/Meds/Labs Reviewed?: Yes Medications reviewed and manag: Yes Additional Instructions: Continue to ice and elevate the foot. Follow up with your primary care provider for reevaluation in the next week if this is not improving at all. May continue to take the Percocet as needed for pain. Follow up care ordered?: Yes Mental Status: Alert HPI General Stated Complaint: L FOOT PAIN Time Seen by Provider: 14:35 Source: patient Exam Limitations: no limitations HPI Foot/Ankle Initial Comments Last week she was planting knutson outside and her foot fell into a hole in the ground. Wrenched the left foot and has had pain the lateral ankle and foot and mid foot since then. Has had a bunionectomy on this foot in the past but no other history of injury. Denies any numbness/tingling in the foot. Has had some continued swelling. Pain with ambulation or palpation of the ankle/foot. Occurred At: home Onset: Rapid Duration: 1 week Severity: moderate Location: left: ankle, foot 1 - area of TTP and pain 2 - area of TTP and pain 3 - area of TTP and pain Method of Injury: twisted Associated Symptoms: pain with extension, pain with flexion, pain with standing , swelling, DENIES: bruising, numbness, pallor, red streaks, redness, weakness Allergies: Coded Allergies: No Known Allergies (Unverified , 09/13/12) Past History Past Medical History Metabolic: hypertension Respiratory: pneumonia Female: kidney stones Musculoskeletal: back pain, other Psychological: bipolar Surgical History General: gallbladder Reproductive/: tubal ligation Joint: foot, shoulder Family History Family PMH: FOUND: diabetes Vaccines Hx Influenza Vaccination: No Hx Tetanus, Diptheria, Pertuss: No (NA - NO SKIN DISRUPTIONS) Social History Smoking Status: Never smoker Substance Use Type: does not use Alcohol Intake: none Review of Systems Musculoskeletal General: joint pain (left ankle and foot), pain (left ankle and foot), tenderness (left dorsal foot), DENIES: joint swelling Integumentary Skin: DENIES: color change, lesion, rash Neurological General: DENIES: numbness, tingling, weakness Exam General General Nourishment: well nourished, well developed, appears stated age, no acute distress, adult General Body Habitus: well groomed Vital Signs: RN Vital Signs have been reviewed: Yes Fastrak Foot/Ankle Foot/Ankle : Leg: Left Leg: NOT FOUND: atrophy, contusion, deformity, discoloration, edema, swelling, tender, weakness Ankle: decreased ROM (slightly due to pain), swelling (left ankle and mid foot), tender lat. foot, tender lat. malleolus, tender mid foot, NOT FOUND: achilles tendon insertion, anterior drawer sign, deformity, ecchymosis, foot drop, numbness, tender med. malleolus, weakness Foot: NOT FOUND: atrophy, deformity, discoloration, numbness, swelling, tender 1st MTP joint, tender plantar fascia Toes: cap refill <2 sec ea toe, NOT FOUND: decreased ROM, deformity, ecchymosis, erythema, nail avulsion, subungual hematoma Dorsalis Pedis Pulse: 2+ Neurologic RN Documented GCS Eye Opening: Verbal: Motor: Total: Differential Diagnoses Considering: Contusion, Dislocation, Fracture, Sprain, Strain Procedures Procedures Performed Procedures Performed: Splinting Splinting Procedure Splint : Site: left ankle Pre-placement NV: FOUND: cap refill < 3 sec, good movement, good sensation Pre-Made Type: aircast Post-placement NV: FOUND: cap refill < 3 sec, good movement, good sensation Applied by: PA/FORKLIFT PICKER Progress Results/Orders Orders Procedure Category Date Status Time Ankle Left 3 View RAD 11/03/16 Resulted Foot Left 3 Views RAD 11/03/16 Resulted Progress Progress Xray today is negative for fracture. Aircast was applied. will go ahead and have her ice and elevate. She does have Percocet at home that she may continue to use. FU with PCP if not improving. Xray Xray #1: Reason for Exam: left ankle pain Xray: Ankle L Interpretation: Normal Xray #2: Reason for Exam: left foot pain Xray: Foot L Interpretation: Normal MERI ALFRED APRN November 03, 2016 14:53
--- NOTE | 2016-11-03 14:54 | NUR ---
PORT XRY AT THIS TIME
--- NOTE | 2016-11-03 15:14 | DI ---
Indication: ITS.REASON: left foot pain x1 week PROCEDURE: FOOT LEFT 3 VIEWS: Encounter: Initial Comparison: None Findings: There is no acute fracture, dislocation or malalignment identified. Impression: No acute osseous abnormality. .
--- NOTE | 2016-11-03 15:15 | DI ---
Indication: ITS.REASON: left ankle pain x1 week PROCEDURE: ANKLE LEFT 3 VIEW: Encounter: Initial Comparison: None Findings: There is no acute fracture, dislocation or malalignment identified. Impression: No acute osseous abnormality. .
--- NOTE | 2016-11-03 15:20 | NUR ---
SPLINT AIRCAST SPLINT APPLIED TO LEFT ANKLE BY CASI,MULTIPLE TUBE WINDING MACHINE OPERATOR
[2016-11-03 15:30] VITALS: BP 142/81; PULSE 82; RESP 16; TEMP 98; O2SAT 96
--- NOTE | 2016-11-03 15:30 | NUR ---
DISMISS INSTRUCTIONS REVIEWED AND GIVEN TO PATIENT VERBALIZED UNDERSTANDING STABLE, AMBULATES TO EXIT
== END 2016-11-03 15:30 | disposition home or self-care (01) ==
LOC: ED 14:28
DX: S93.402A Sprain of unspecified ligament of left ankle, initial encounter (principal); S90.32XA Contusion of left foot, initial encounter; W17.2XXA Fall into hole, initial encounter; Y93.H2 Activity, gardening and landscaping; Y92.007 Garden or yard of unspecified non-institutional (private) residence as the place of occurrence of the external cause; Y99.8 Other external cause status